=== PATIENT | male | born 1985 | race African-American/Black ===

== ENCOUNTER 2017-08-12 11:03 | Emergency (ER) | payer SELFPAY, OTHER ==
[2017-08-12] MEDS: FLUORESCEIN OPHTH TEST STRIP. OD (12:15)
[2017-08-12] MEDS: TETRACAINE 0.5% OPHTH SOLUTION 4ML BOTTLE. OD (12:15)
[2017-08-12] MEDS: DIPHTH,PERTUSS(ACELL),TET TOX 0.5 ML DISP.SYRIN. VAX IM (12:17)
== END 2017-08-12 13:25 | disposition home or self-care (01) ==
LOC: ER 13:25
DX: T26.51XA Corrosion of right eyelid and periocular area, initial encounter (principal); T59.891A Toxic effect of other specified gases, fumes and vapors, accidental (unintentional), initial encounter; Y92.69 Other specified industrial and construction area as the place of occurrence of the external cause
CPT/HCPCS: 90471; 90715; 99283-25

== ENCOUNTER 2018-09-09 00:08 | Emergency (ER) | payer SELFPAY ==
[~2018-09-09] VITALS: Ht 185.4 cm; Wt 80.7 kg
[~2018-09-09 00:08] MED LIST: DEXT15DR5 EACHEYE; ERYT1OIN6 OP; TRAM50TA PO
[2018-09-09 00:54] VITALS: BP 130/78
[2018-09-09] MEDS ORDERED: KETOROLAC 60 MG/2 ML VIAL. IM ONE (01:30)
[2018-09-09] MEDS ORDERED: DICL50TA4 PO (01:48)
[2018-09-09] MEDS ORDERED: TRAM50TA PO (01:48)
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
--- NOTE | 2018-09-09 07:48 | RAD ---
EXAM: 3 views left shoulder DATE: 09/09/2018 1:16 AM INDICATION: Fall, shoulder injury COMPARISON: No Prior FINDINGS: No evidence of acute fracture or dislocation. AC joint is congruent. No significant AC joint or glenohumeral joint proliferative changes are seen. Humeral head is not high riding. IMPRESSION: No evidence of acute fracture or dislocation. Electronically signed by: Arun Davis MD (09/09/2018 7:45 AM) [facility]
== END 2018-09-09 01:59 | disposition home or self-care (01) ==
LOC: ER 00:08
DX: S43.492A Other sprain of left shoulder joint, initial encounter (principal); W18.39XA Other fall on same level, initial encounter; Y93.89 Activity, other specified; Y92.89 Other specified places as the place of occurrence of the external cause; Y99.8 Other external cause status
CPT/HCPCS: 73030; 96372; 99284; J1885

== ENCOUNTER 2019-05-16 01:54 | Emergency (ER) | payer SELFPAY ==
[~2019-05-16] VITALS: Ht 185.4 cm; Wt 80.9 kg
[~2019-05-16 01:54] MED LIST changes: +DICL50TA4 PO
[2019-05-16 02:04] VITALS: BP 133/76
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
== END 2019-05-16 02:25 | disposition home or self-care (01) ==
LOC: ER 01:54
DX: S02.5XXA Fracture of tooth (traumatic), initial encounter for closed fracture (principal); K08.89 Other specified disorders of teeth and supporting structures; R51 Headache; F17.200 Nicotine dependence, unspecified, uncomplicated; X58.XXXA Exposure to other specified factors, initial encounter; Y93.89 Activity, other specified; Y92.89 Other specified places as the place of occurrence of the external cause; Y99.8 Other external cause status
CPT/HCPCS: 99281

== ENCOUNTER 2019-07-22 16:43 | Emergency (ER) | payer SELFPAY ==
[~2019-07-22] VITALS: Ht 185.4 cm; Wt 76.0 kg
[2019-07-22 16:55] VITALS: BP 163/90
[2019-07-22] MEDS ORDERED: AMOX500T PO (17:20)
[2019-07-22] MEDS ORDERED: TRAM50TA PO (17:20)
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
== END 2019-07-22 17:34 | disposition home or self-care (01) ==
LOC: ER 16:43
DX: S02.5XXA Fracture of tooth (traumatic), initial encounter for closed fracture (principal); K08.89 Other specified disorders of teeth and supporting structures; F17.200 Nicotine dependence, unspecified, uncomplicated; Z98.890 Other specified postprocedural states; X58.XXXA Exposure to other specified factors, initial encounter; Y93.89 Activity, other specified; Y92.89 Other specified places as the place of occurrence of the external cause; Y99.8 Other external cause status
CPT/HCPCS: 99283